=== PATIENT | male | born 1990 | race Caucasian/White ===

== ENCOUNTER 2017-04-18 07:38 | Emergency (ER) | payer OTHER ==
[2017-04-18 07:43] VITALS: PULSE 78
--- NOTE | 2017-04-18 08:09 | EDPHY ---
H & P Time Seen by Provider: 04/18/17 08:09 HPI/ROS: Chief complaint. Hand laceration HPI. 26-year-old male presents with laceration to the left palm. He stabbed himself in the left hand while preparing breakfast. He was putting ventilation holes in a burrito that he was preparing. The knife slipped and he stabbed himself in the left hand. He has no sensation of retained foreign body. Does not have any focal weakness or paresthesias. Patient is right handed ROS Constitutional. no fever/chills, no weakness Eyes. no problems with vision ENT. no sore throat, no nasal drainage Cardiovascular. no chest pain Respiratory. no shortness of breath, no cough Abdominal. no abdominal pain, no nausea/vomiting, no diarrhea . no problems urinating MS. no calf pain/swelling, no neck/back pain, no joint pain Skin. Left palm laceration Lymph. no swollen glands Neuro. no headache, no dizziness, no difficulty walking or with speech Past Medical/Surgical History: Healthy Social History: Single, nonsmoker, no alcohol Smoking Status: Never smoked Physical Exam: General Appearance: Alert pleasant well-developed male mild distress vital signs stable Eyes: Pupils equal and round no pallor or injection. ENT, Mouth: Mucous membranes are moist. Respiratory: There are no retractions, lungs are clear to auscultation. Cardiovascular: Regular rate and rhythm. Gastrointestinal: Abdomen is soft and nontender, no masses, bowel sounds normal. Neurological: Awake and alert, sensory and motor exams grossly normal. Skin: 2 cm somewhat irregular laceration to the mid left palm. Distal motor vascular sensitivity is intact Musculoskeletal: Neck is supple nontender. Extremities symmetrical, full range of motion. Psychiatric: Patient is oriented X 3, there is no agitation. Constitutional: Initial Vital Signs Temperature (C) 36.6 C 04/18/17 07:42 Heart Rate 78 04/18/17 07:42 Respiratory Rate 16 04/18/17 07:42 Blood Pressure 128/82 H 04/18/17 07:42 O2 Sat (%) 97 04/18/17 07:42 O2 Delivery Mode Room Air Allergies/Adverse Reactions: Penicillins Allergy (Unknown, Verified 04/18/17 07:41) as child Home Medications: Medication Instructions Recorded NK [No Known Home Meds] 04/18/17 Medical Decision Making Procedures: Procedure: Laceration repair. Verbal consent was obtained from the patient. The 2 cm laceration on the left palm was anesthetized in the usual fashion. The wound was irrigated, draped and explored to its base with a gloved finger. There were no deep structures involved. No tendon injury was identified. The wound was repaired with six 5- 0 Prolene sutures . The wound repair was simple. The procedure was performed by myself. ED Course/Re-evaluation: Patient remained stable. The patient and I discussed treatment plan including criteria for return importance of follow-up further evaluation. He expresses understanding and agreement Differential Diagnosis: I considered retained foreign body, tendon laceration, infection potential of wound Departure - Departure Disposition: Home, Routine, Self-Care Clinical Impression: Hand laceration Qualifiers: Encounter type: initial encounter Foreign body presence: without foreign body Laterality: left Qualified Code(s): S61.412A - Laceration without foreign body of left hand, initial encounter Condition: Good Instructions: Care For Your Stitches (ED) Additional Instructions: Keep cut clean and dry. You may shower and wash your hands with stitches in. Avoid immersion. Return for signs of infection. Stitches out 10 days Referrals: NONE *PRIMARY CARE P,. [Primary Care Provider] - As per Instructions
[2017-04-18 09:13] VITALS: BP 125/76; RESP 17; TEMP 98.4; O2SAT 95
== END 2017-04-18 09:11 | disposition home or self-care (01) ==
PROC: 0HQGXZZ Repair Left Hand Skin, External Approach (ICD-10-PCS; principal; 2017-04-18)
DX: S61.412A Laceration without foreign body of left hand, initial encounter (principal); W26.0XXA Contact with knife, initial encounter; Y99.8 Other external cause status; Y93.G1 Activity, food preparation and clean up